=== PATIENT | male | born 1940 | race Caucasian/White ===

== ENCOUNTER 2018-10-24 13:43 | Inpatient (IN) | payer BC ==
[~2018-10-24] VITALS: Ht 162.6 cm; Wt 40.8 kg
[2018-10-24 18:13] VITALS: BP_SYST 159
[2018-10-24] MEDS ORDERED: LEVO100T9 PO (18:27)
[2018-10-24] MEDS ORDERED: cloNIDine HCL 0.1 MG TABLET PO PRN (18:45)
[2018-10-24] MEDS ORDERED: PANTOPRAZOLE SODIUM 40 MG TAB PO ONE (19:30)
[2018-10-24] MEDS: D5NS 1,000 ML IV SCH (19:49)
[2018-10-24 20:05] VITALS: BP_SYST 139
[2018-10-25 00:03] VITALS: BP_SYST 135
[2018-10-25] MEDS: LEVOTHYROXINE SODIUM 0.1 MG TABLET PO SCH (06:24)
[2018-10-25 08:52] LABS: BASOPHILS % (AUTO) 0.6 % (0.0-2.0); EOSINOPHILS # (AUTO) 0.3 K/uL (0.0-0.4); EOSINOPHILS % (AUTO) 4.5 % (0.0-4.0); HEMATOCRIT 43.3 % (36-54); HEMOGLOBIN 14.7 g/dL (14.0-18.0); LYMPHOCYTES # (AUTO) 1.7 K/uL (1.0-5.5); LYMPHOCYTES % (AUTO) 27.1 % (20.5-51.5); MEAN CORPUSCULAR HEMOGLOBIN 31 pg (27-31); MEAN CORPUSCULAR HGB CONC 34 % (32-36); MEAN CORPUSCULAR VOLUME 91 fL (79.0-98.0); MONOCYTES # (AUTO) 0.6 K/uL (0.0-1.0); MONOCYTES % (AUTO) 9.1 % (1.7-9.3); NEUTROPHILS # (AUTO) 3.8 K/uL (1.8-7.7); NEUTROPHILS % (AUTO) 58.7 % (40.0-70.0); PLATELET COUNT (AUTO) 274 K/uL (130-430); RED BLOOD CELL COUNT(AUTO) 4.75 MIL/uL (4.2-6.2); RED CELL DISTRIBUTION WIDTH 14.3 % (9.0-15.0); WHITE BLOOD COUNT (AUTO) 6.4 K/uL (4.8-10.8)
[2018-10-25 09:11] LABS: ALANINE AMINOTRANSFERASE 16 U/L (12-78); ANION GAP 6 (5-15); ASPARTATE AMINOTRANSFERASE 18 U/L (10-37); CALCIUM 8.4 mg/dL (8.4-11.0); CHLORIDE 103 mmol/L (98-107); CREATININE 0.46 mg/dL (0.55-1.30); GLUCOSE 90 mg/dL (70-99); POTASSIUM 3.8 mmol/L (3.5-5.1); SODIUM SERUM 136 mmol/L (136-145); TOTAL BILIRUBIN 0.5 mg/dL (0.0-1.0); UREA NITROGEN, BLOOD 14 mg/dL (8-21)
[2018-10-25] MEDS: ASPIRIN 325 MG TABLET (ECOTRIN) PO SCH (10:24)
[2018-10-25] MEDS: PANTOPRAZOLE SODIUM 40 MG TAB PO SCH (10:25)
[2018-10-25 10:43] LABS: THYROID STIMULATING HORMONE 0.43 uIu/mL (0.34-4.82)
[2018-10-25 12:33] VITALS: BP_SYST 139
[2018-10-25 16:30] VITALS: BP_SYST 124
[2018-10-25] MEDS: D5NS 1,000 ML IV SCH (18:40)
[2018-10-25 20:05] VITALS: BP_SYST 135
[2018-10-25 22:20] VITALS: BP_SYST 139
[2018-10-26] MEDS ORDERED: HYDROcodone/ACETAMIN 5-325 MG TAB (NORCO/ VICODIN) PO PRN (01:00)
[2018-10-26] MEDS ORDERED: ACETAMINOPHEN 325 MG TABLET PO PRN (01:00)
[2018-10-26] MEDS: LEVOTHYROXINE SODIUM 0.1 MG TABLET PO SCH (06:04)
[2018-10-26 08:08] VITALS: BP_SYST 121
[2018-10-26] MEDS: ASPIRIN 325 MG TABLET (ECOTRIN) PO SCH (08:59)
[2018-10-26] MEDS: PANTOPRAZOLE SODIUM 40 MG TAB PO SCH (08:59)
[2018-10-26] MEDS ORDERED: ATORVASTATIN 20 MG TABLET PO ONE (09:30)
[2018-10-26] MEDS: D5NS 1,000 ML IV SCH (10:05)
[2018-10-26 13:14] VITALS: BP_SYST 139
[2018-10-26 16:17] VITALS: BP_SYST 122
[2018-10-26 18:02] VITALS: BP_SYST 126
[2018-10-26 20:00] VITALS: BP_SYST 144
[2018-10-27] MEDS ORDERED: ATORVASTATIN 20 MG TABLET PO SCH (09:00)
== END 2018-10-26 20:35 | DRG 65 ==
LOC: STU 17:45 → SMU 10-26 09:23 → STU 10-26 09:29 → SMU 10-26 09:51
PROVIDERS: ADMIT Internal Medicine Hospice and Palliative Medicine; ATTEND Internal Medicine Hospice and Palliative Medicine
DX: I63.9 Cerebral infarction, unspecified (principal); G81.91 Hemiplegia, unspecified affecting right dominant side; E03.9 Hypothyroidism, unspecified; I10 Essential (primary) hypertension; F17.210 Nicotine dependence, cigarettes, uncomplicated; I45.10 Unspecified right bundle-branch block; M06.9 Rheumatoid arthritis, unspecified; N40.0 Benign prostatic hyperplasia without lower urinary tract symptoms; R29.810 Facial weakness; M19.90 Unspecified osteoarthritis, unspecified site; Z85.46 Personal history of malignant neoplasm of prostate; Z85.51 Personal history of malignant neoplasm of bladder; Z87.828 Personal history of other (healed) physical injury and trauma; Z79.899 Other long term (current) drug therapy
CPT/HCPCS: 36415; 70551; 80053; 80061; 84443-TC; 85025; 92610-GN; 93306; 93880; G0378; J7042